=== PATIENT | female | born 1985 | race Caucasian/White ===

== ENCOUNTER 2020-10-17 20:01 | Inpatient (IN) | payer MEDICAID ==
[~2020-10-17] VITALS: Ht 152.4 cm; Wt 89.8 kg
[2020-10-17 20:00] VITALS: BP 138/80
[~2020-10-17 20:01] MED LIST: BETAMETHASONE 6 MG/ML, 5ML IM ONE
[2020-10-17] MEDS ORDERED: MAGNESIUM SULF. PMX 20GM/500ML 500 ML IV ONE (20:04)
[2020-10-17] MEDS: LACTATED RINGERS 1,000 ML IV PRN (20:15)
[2020-10-17] MEDS ORDERED: MAGNESIUM SULFATE PMX 2GM/50ML 50 ML IVPB ONE (20:30)
[2020-10-17] MEDS ORDERED: MAGNESIUM SULF. PMX 20GM/500ML 500 ML IV SCH (20:30)
[2020-10-17 20:42] LABS: MEAN CORPUSCULAR HEMOGLOBIN 30.2 pg (27.0-34.8); MEAN CORPUSCULAR HGB CONC 33.3 g/dL (32.4-35.8); MEAN PLATELET VOLUME 8.5 fL (7.4-10.4); PLATELET COUNT 300 x10^3/uL (130-400); RED BLOOD COUNT 4.18 x10^6/uL (3.82-5.3); RED CELL DISTRIBUTION WIDTH 12.5 % (9.6-15.2)
[2020-10-17 20:51] LABS: AMPHETAMINE SCREEN, URINE Negative (Negative); BARBITURATE SCREEN, URINE Negative (Negative); BENZODIAZEPINE SCREEN, URINE Negative (Negative); CANNABINOID SCREEN, URINE Negative (Negative); COCAINE SCREEN, URINE Negative (Negative); METHADONE SCREEN, URINE Negative (Negative); OPIATE SCREEN, URINE Negative (Negative)
[2020-10-17 20:54] LABS: ALANINE AMINOTRANSFERASE 11 U/L (12-78); ALBUMIN 2.5 g/dL (3.4-5.0); ANION GAP 13 mmol/L (5-15); CALCIUM 8.4 mg/dL (8.5-10.1); CHLORIDE 104 mmol/L (98-107); CREATININE 0.52 mg/dL (0.55-1.02)
[2020-10-17 20:54] LABS: MICROSCOPIC INDICATED
[2020-10-17 20:56] LABS: ALKALINE PHOSPHATASE 202 U/L (45-117); BILIRUBIN,TOTAL 0.5 mg/dL (0.2-1.0); MD YES; TOTAL PROTEIN 6.8 g/dL (6.4-8.2)
[2020-10-17 21:23] LABS: BAND#(MANUAL) 0.56 x10^3/uL; BANDS%(MANUAL) 3 % (0-7); LYMPH#(MANUAL) 2.05 x10^3/uL (1-3.4); LYMPHS% (MANUAL) 11 % (22-44); METAMYELOCYTES# (MANUAL) 0.19 x10^3/uL (0-0); METAMYELOCYTES% (MANUAL) 1 % (0-1); MONOS#(MANUAL) 1.12 x10^3/uL (0.3-2.7); MONOS% (MANUAL) 6 % (2-9); MYELOCYTES# (MANUAL) 0.19 x10^3/uL (0-0); MYELOCYTES% (MANUAL) 1 % (0-0); SEG#(MANUAL) 14.51 x10^3/uL (1.8-6.8); SEGS% (MANUAL) 78 % (42-75)
[2020-10-17 21:24] LABS: <PLATELET ESTIMATE> ADEQUATE; <PLT MORPHOLOGY> NORMAL PLT MORPH; <RBC MORPHOLOGY> NORMAL; TOXIC GRAN 1+
[2020-10-17] MEDS ORDERED: D5%-0.9% NACL 1,000 ML IV SCH (21:30)
[2020-10-17] MEDS: MAGNESIUM SULF. PMX 20GM/500ML 500 ML IV SCH (21:35)
[2020-10-17] MEDS: PENICILLIN GK 2,500,000 UNITS in DEXTROSE 5% 100 ML IV SCH (22:30)
[2020-10-17] MEDS ORDERED: ACETAMINOPHEN 325 MG TABLET ONE (23:56)
[2020-10-18] MEDS: MAGNESIUM SULF. PMX 20GM/500ML 500 ML IV SCH ×3 (02:59→16:34)
[2020-10-18] MEDS: PENICILLIN GK 2,500,000 UNITS in DEXTROSE 5% 100 ML IV SCH ×5 (04:10→19:58)
[2020-10-18] MEDS: ACETAMINOPHEN 325 MG TABLET PO PRN ×2 (07:34)
[2020-10-18 07:39] VITALS: BP 114/66
[2020-10-18] MEDS ORDERED: BETAMETHASONE 6 MG/ML, 5ML IM ONE (18:08)
[2020-10-18] MEDS ORDERED: MAGNESIUM SULF. PMX 20GM/500ML 500 ML IV SCH (21:00)
[2020-10-18] MEDS ORDERED: MAGNESIUM SULF. PMX 20GM/500ML 500 ML IV PRN (21:30)
[2020-10-18] MEDS: LACTATED RINGERS 1,000 ML IV PRN (22:30)
[2020-10-19] MEDS: PENICILLIN GK 2,500,000 UNITS in DEXTROSE 5% 100 ML IV SCH (00:07)
[2020-10-19] MEDS ORDERED: DOCUSATE 100 MG CAPSULE ONE (08:43)
[2020-10-19] MEDS ORDERED: PRENATAL VIT/IRON/FA 1 EACH TABLET ONE (08:44)
[2020-10-19] MEDS: PRENATAL VIT/IRON/FA 1 EACH TABLET PO SCH (09:10)
[2020-10-19] MEDS: DOCUSATE 100 MG CAPSULE PO PRN (09:10)
[2020-10-19] MEDS ORDERED: MAGNESIUM SULF. PMX 20GM/500ML 500 ML IV PRN (10:00)
[2020-10-19] MEDS: LACTATED RINGERS 1,000 ML IV PRN (12:12)
[2020-10-19] MEDS: ACETAMINOPHEN 325 MG TABLET PO PRN (15:00)
[2020-10-19 20:15] VITALS: BP 115/55
[2020-10-20] MEDS ORDERED: PREN1TAB60 PO (08:45)
[2020-10-20] MEDS: SODIUM CHLORIDE FLUSH 3ML SYRINGE IVF SCH ×2 (08:48→21:00)
[2020-10-20] MEDS: PRENATAL VIT/IRON/FA 1 EACH TABLET PO SCH (08:48)
[2020-10-20] MEDS ORDERED: MAGNESIUM SULF. PMX 20GM/500ML 500 ML IV PRN (10:00)
[2020-10-20 19:45] VITALS: BP 120/71
[2020-10-20] MEDS: FLUTICASONE NASAL SPRAY 16GM NAS SCH (20:38)
[2020-10-21] MEDS: PRENATAL VIT/IRON/FA 1 EACH TABLET PO SCH (08:08)
[2020-10-21] MEDS: SODIUM CHLORIDE FLUSH 3ML SYRINGE IVF SCH ×2 (08:08→20:39)
[2020-10-21] MEDS: DEXTROMETHORPHAN 30 MG/5 ML ORAL SOL PO PRN ×2 (08:48→20:37)
[2020-10-21] MEDS: FLUTICASONE NASAL SPRAY 16GM NAS SCH ×2 (08:49→21:00)
[2020-10-21] MEDS: BENZONATATE 100 MG CAPSULE PO PRN ×2 (08:49→18:51)
[2020-10-21 19:36] LABS: BASOPHILS % (AUTO) 0 % (0-1); EOSINOPHILS % (AUTO) 0 % (1-7); LYMPHOCYTES % (AUTO) 19 % (22-44); MEAN CORPUSCULAR HEMOGLOBIN 30.1 pg (27.0-34.8); MEAN CORPUSCULAR HGB CONC 33.3 g/dL (32.4-35.8); MEAN PLATELET VOLUME 8.7 fL (7.4-10.4); MONOCYTES % (AUTO) 13 % (2-9); NEUTROPHILS % (AUTO) 67 % (42-75); PLATELET COUNT 329 x10^3/uL (130-400); RED BLOOD COUNT 4.24 x10^6/uL (3.82-5.3); RED CELL DISTRIBUTION WIDTH 12.6 % (9.6-15.2)
[2020-10-21 20:22] LABS: MD SCAN
[2020-10-22] MEDS: BENZONATATE 100 MG CAPSULE PO PRN (07:09)
[2020-10-22] MEDS: PRENATAL VIT/IRON/FA 1 EACH TABLET PO SCH (08:44)
[2020-10-22] MEDS: SODIUM CHLORIDE FLUSH 3ML SYRINGE IVF SCH (08:44)
[2020-10-22] MEDS: DEXTROMETHORPHAN 30 MG/5 ML ORAL SOL PO PRN ×2 (08:44→20:59)
[2020-10-22] MEDS: FLUTICASONE NASAL SPRAY 16GM NAS SCH ×2 (09:00→21:00)
[2020-10-22 09:08] VITALS: BP 126/70
[2020-10-23 08:53] VITALS: BP 129/78
[2020-10-23] MEDS: FLUTICASONE NASAL SPRAY 16GM NAS SCH ×2 (09:00→21:00)
[2020-10-23] MEDS: SODIUM CHLORIDE FLUSH 3ML SYRINGE IVF SCH ×3 (09:00→21:11)
[2020-10-23] MEDS: DEXTROMETHORPHAN 30 MG/5 ML ORAL SOL PO PRN ×2 (09:18→21:11)
[2020-10-23] MEDS: PRENATAL VIT/IRON/FA 1 EACH TABLET PO SCH (09:37)
[2020-10-24] MEDS: FLUTICASONE NASAL SPRAY 16GM NAS SCH ×2 (09:00→20:48)
[2020-10-24] MEDS: DEXTROMETHORPHAN 30 MG/5 ML ORAL SOL PO PRN ×2 (10:04→22:13)
[2020-10-24] MEDS: SODIUM CHLORIDE FLUSH 3ML SYRINGE IVF SCH ×2 (10:05→20:46)
[2020-10-24] MEDS: PRENATAL VIT/IRON/FA 1 EACH TABLET PO SCH (10:05)
[2020-10-24] MEDS: DOCUSATE 100 MG CAPSULE PO PRN (10:05)
[2020-10-24] MEDS: BENZONATATE 100 MG CAPSULE PO PRN (17:01)
[2020-10-24 20:30] VITALS: BP 142/78
[2020-10-25] MEDS: DEXTROMETHORPHAN 30 MG/5 ML ORAL SOL PO PRN (08:54)
[2020-10-25] MEDS: PRENATAL VIT/IRON/FA 1 EACH TABLET PO SCH (08:54)
[2020-10-25] MEDS: DOCUSATE 100 MG CAPSULE PO PRN (08:54)
[2020-10-25] MEDS: SODIUM CHLORIDE FLUSH 3ML SYRINGE IVF SCH ×2 (08:55→21:20)
[2020-10-25] MEDS: FLUTICASONE NASAL SPRAY 16GM NAS SCH ×2 (09:00→20:52)
[2020-10-25 19:30] VITALS: BP 125/70
[2020-10-26] MEDS: ACETAMINOPHEN 325 MG TABLET PO PRN (07:44)
[2020-10-26] MEDS: PRENATAL VIT/IRON/FA 1 EACH TABLET PO SCH (07:47)
[2020-10-26 07:57] VITALS: BP 125/76
[2020-10-26] MEDS: SODIUM CHLORIDE FLUSH 3ML SYRINGE IVF SCH ×2 (09:00→20:20)
[2020-10-26] MEDS: FLUTICASONE NASAL SPRAY 16GM NAS SCH ×2 (09:00→20:20)
[2020-10-26 19:30] VITALS: BP 127/77
[2020-10-27 05:43] LABS: BASOPHILS % (AUTO) 0 % (0-1); CHLORIDE 102 mmol/L (98-107); EOSINOPHILS % (AUTO) 0 % (1-7); LYMPHOCYTES % (AUTO) 28 % (22-44); MEAN CORPUSCULAR HEMOGLOBIN 29.7 pg (27.0-34.8); MEAN CORPUSCULAR HGB CONC 32.7 g/dL (32.4-35.8); MEAN PLATELET VOLUME 9.1 fL (7.4-10.4); MONOCYTES % (AUTO) 9 % (2-9); NEUTROPHILS % (AUTO) 63 % (42-75); PLATELET COUNT 296 x10^3/uL (130-400); RED BLOOD COUNT 4.21 x10^6/uL (3.82-5.3); RED CELL DISTRIBUTION WIDTH 12.7 % (9.6-15.2)
[2020-10-27 05:58] LABS: ALANINE AMINOTRANSFERASE 13 U/L (12-78); ALBUMIN 2.4 g/dL (3.4-5.0); ALKALINE PHOSPHATASE 179 U/L (45-117); ANION GAP 8 mmol/L (5-15); BILIRUBIN,TOTAL 0.3 mg/dL (0.2-1.0); CREATININE 0.63 mg/dL (0.55-1.02); TOTAL PROTEIN 6.4 g/dL (6.4-8.2)
[2020-10-27 07:19] LABS: MD NO
[2020-10-27] MEDS: PRENATAL VIT/IRON/FA 1 EACH TABLET PO SCH (08:42)
[2020-10-27 08:53] VITALS: BP 120/67
[2020-10-27] MEDS: FLUTICASONE NASAL SPRAY 16GM NAS SCH ×2 (09:00→21:00)
[2020-10-27 19:30] VITALS: BP 127/74
[2020-10-28] MEDS: PRENATAL VIT/IRON/FA 1 EACH TABLET PO SCH (07:45)
[2020-10-28 07:46] VITALS: BP 127/81
[2020-10-28] MEDS: FLUTICASONE NASAL SPRAY 16GM NAS SCH ×2 (09:00→20:12)
[2020-10-28 12:17] VITALS: BP 130/76
[2020-10-28 17:08] VITALS: BP 128/81
[2020-10-28 19:30] VITALS: BP 135/73
[2020-10-29] MEDS: DOCUSATE 100 MG CAPSULE PO PRN ×2 (08:03→20:52)
[2020-10-29] MEDS: PRENATAL VIT/IRON/FA 1 EACH TABLET PO SCH (08:03)
[2020-10-29] MEDS: FLUTICASONE NASAL SPRAY 16GM NAS SCH ×2 (09:00→21:00)
[2020-10-30] MEDS: PRENATAL VIT/IRON/FA 1 EACH TABLET PO SCH (08:08)
[2020-10-30] MEDS: DOCUSATE 100 MG CAPSULE PO PRN ×2 (08:08→22:58)
[2020-10-30] MEDS: FLUTICASONE NASAL SPRAY 16GM NAS SCH ×2 (09:00→21:00)
[2020-10-31] MEDS: DOCUSATE 100 MG CAPSULE PO PRN (08:03)
[2020-10-31] MEDS: PRENATAL VIT/IRON/FA 1 EACH TABLET PO SCH (08:03)
[2020-10-31 08:07] VITALS: BP 114/73
[2020-10-31] MEDS: FLUTICASONE NASAL SPRAY 16GM NAS SCH ×2 (09:00→21:00)
[2020-10-31 20:10] VITALS: BP 128/86
[2020-11-01 07:30] VITALS: BP 130/87
[2020-11-01] MEDS: FLUTICASONE NASAL SPRAY 16GM NAS SCH ×2 (09:00→20:48)
[2020-11-01] MEDS: PRENATAL VIT/IRON/FA 1 EACH TABLET PO SCH (09:11)
[2020-11-01] MEDS: DOCUSATE 100 MG CAPSULE PO PRN (09:11)
[2020-11-01 19:50] VITALS: BP 122/77
[2020-11-02] MEDS: PRENATAL VIT/IRON/FA 1 EACH TABLET PO SCH (08:42)
[2020-11-02] MEDS: DOCUSATE 100 MG CAPSULE PO PRN (08:42)
[2020-11-02 08:49] VITALS: BP 119/77
[2020-11-02] MEDS: FLUTICASONE NASAL SPRAY 16GM NAS SCH ×2 (09:00→21:00)
[2020-11-02 19:20] VITALS: BP 136/86
[2020-11-03] MEDS: FLUTICASONE NASAL SPRAY 16GM NAS SCH ×2 (09:00→21:00)
[2020-11-03] MEDS: PRENATAL VIT/IRON/FA 1 EACH TABLET PO SCH (09:24)
[2020-11-03 09:45] VITALS: BP 117/79
[2020-11-03 19:30] VITALS: BP 124/82
[2020-11-04 08:28] VITALS: BP 122/78
[2020-11-04] MEDS: FLUTICASONE NASAL SPRAY 16GM NAS SCH ×2 (09:00→21:00)
[2020-11-04] MEDS: PRENATAL VIT/IRON/FA 1 EACH TABLET PO SCH (09:50)
[2020-11-04] MEDS: DOCUSATE 100 MG CAPSULE PO PRN (09:50)
[2020-11-05 08:29] VITALS: BP 145/75
[2020-11-05] MEDS: PRENATAL VIT/IRON/FA 1 EACH TABLET PO SCH ×2 (08:36→08:37)
[2020-11-05] MEDS: FLUTICASONE NASAL SPRAY 16GM NAS SCH ×2 (09:00→21:00)
[2020-11-06 07:20] VITALS: BP 138/81
[2020-11-06] MEDS: PRENATAL VIT/IRON/FA 1 EACH TABLET PO SCH (08:22)
[2020-11-06] MEDS: DOCUSATE 100 MG CAPSULE PO PRN (08:22)
[2020-11-06] MEDS: FLUTICASONE NASAL SPRAY 16GM NAS SCH ×2 (09:00→21:00)
[2020-11-07] MEDS: FLUTICASONE NASAL SPRAY 16GM NAS SCH ×2 (09:00→20:52)
[2020-11-07] MEDS: DOCUSATE 100 MG CAPSULE PO PRN (09:21)
[2020-11-07] MEDS: PRENATAL VIT/IRON/FA 1 EACH TABLET PO SCH (09:21)
[2020-11-07 09:23] VITALS: BP 132/76
[2020-11-07 19:45] VITALS: BP 123/84
[2020-11-08] MEDS: DOCUSATE 100 MG CAPSULE PO PRN (07:47)
[2020-11-08] MEDS: PRENATAL VIT/IRON/FA 1 EACH TABLET PO SCH (07:47)
[2020-11-08 07:49] VITALS: BP 117/86
[2020-11-08] MEDS: FLUTICASONE NASAL SPRAY 16GM NAS SCH ×2 (09:00→21:00)
[2020-11-08 19:15] VITALS: BP 132/83
[2020-11-09] MEDS: DOCUSATE 100 MG CAPSULE PO PRN (08:15)
[2020-11-09] MEDS: PRENATAL VIT/IRON/FA 1 EACH TABLET PO SCH (08:15)
[2020-11-09] MEDS: FLUTICASONE NASAL SPRAY 16GM NAS SCH ×2 (09:00→21:00)
[2020-11-09 19:30] VITALS: BP 122/77
[2020-11-10] MEDS: PRENATAL VIT/IRON/FA 1 EACH TABLET PO SCH (09:00)
[2020-11-10] MEDS: FLUTICASONE NASAL SPRAY 16GM NAS SCH ×2 (09:00→21:00)
[2020-11-10 20:00] VITALS: BP 129/84
[2020-11-11 08:55] VITALS: BP 143/87
[2020-11-11] MEDS: PRENATAL VIT/IRON/FA 1 EACH TABLET PO SCH (09:02)
[2020-11-11] MEDS: DOCUSATE 100 MG CAPSULE PO PRN (09:02)
[2020-11-11 10:08] LABS: BASOPHILS % (AUTO) 0 % (0-1); EOSINOPHILS % (AUTO) 0 % (1-7); LYMPHOCYTES % (AUTO) 26 % (22-44); MD NO; MEAN CORPUSCULAR HEMOGLOBIN 29.7 pg (27.0-34.8); MEAN CORPUSCULAR HGB CONC 33.1 g/dL (32.4-35.8); MEAN PLATELET VOLUME 9.1 fL (7.4-10.4); MONOCYTES % (AUTO) 9 % (2-9); NEUTROPHILS % (AUTO) 64 % (42-75); PLATELET COUNT 275 x10^3/uL (130-400); RED BLOOD COUNT 4.58 x10^6/uL (3.82-5.3)
[2020-11-11 10:11] LABS: ALANINE AMINOTRANSFERASE 14 U/L (12-78); ANION GAP 8 mmol/L (5-15); CALCIUM 8.8 mg/dL (8.5-10.1); CHLORIDE 106 mmol/L (98-107); CREATININE 0.64 mg/dL (0.55-1.02)
[2020-11-11 10:14] LABS: ALKALINE PHOSPHATASE 175 U/L (45-117); BILIRUBIN,TOTAL 0.2 mg/dL (0.2-1.0); TOTAL PROTEIN 6.3 g/dL (6.4-8.2)
[2020-11-12] MEDS: PRENATAL VIT/IRON/FA 1 EACH TABLET PO SCH (08:32)
[2020-11-12] MEDS: DOCUSATE 100 MG CAPSULE PO PRN ×2 (08:32→21:27)
[2020-11-12] MEDS: ACETAMINOPHEN 325 MG TABLET PO PRN (16:59)
[2020-11-12 19:32] VITALS: BP 126/80
[2020-11-13] MEDS: ACETAMINOPHEN 325 MG TABLET PO PRN (03:52)
[2020-11-13 07:35] VITALS: BP 119/78
[2020-11-13] MEDS: PRENATAL VIT/IRON/FA 1 EACH TABLET PO SCH (09:19)
[2020-11-13] MEDS: DOCUSATE 100 MG CAPSULE PO PRN (09:19)
[2020-11-13 11:11] LABS: CREATININE CLEARANCE,URINE 82.1 (70.0-140.0)
[2020-11-13 11:31] VITALS: BP 137/83
[2020-11-13 19:30] VITALS: BP 128/82
[2020-11-14 07:59] VITALS: BP 137/83
[2020-11-14] MEDS: DOCUSATE 100 MG CAPSULE PO PRN (08:24)
[2020-11-14] MEDS: PRENATAL VIT/IRON/FA 1 EACH TABLET PO SCH (08:24)
[2020-11-15 11:09] VITALS: BP 147/76
[2020-11-15] MEDS: PRENATAL VIT/IRON/FA 1 EACH TABLET PO SCH (15:44)
[2020-11-15] MEDS: DOCUSATE 100 MG CAPSULE PO PRN (20:50)
[2020-11-16] MEDS: PRENATAL VIT/IRON/FA 1 EACH TABLET PO SCH (09:31)
[2020-11-16 09:34] VITALS: BP 119/81
[2020-11-16 16:30] VITALS: BP 123/76
[2020-11-16 20:00] VITALS: BP 143/89
[2020-11-17] MEDS: PRENATAL VIT/IRON/FA 1 EACH TABLET PO SCH (08:09)
[2020-11-17 19:52] VITALS: BP 130/88
[2020-11-18 08:36] VITALS: BP 129/78
[2020-11-18] MEDS: PRENATAL VIT/IRON/FA 1 EACH TABLET PO SCH (11:10)
[2020-11-18 20:00] VITALS: BP 120/77
[2020-11-19 06:32] LABS: BASOPHILS % (AUTO) 1 % (0-1); EOSINOPHILS % (AUTO) 1 % (1-7); LYMPHOCYTES % (AUTO) 33 % (22-44); MEAN CORPUSCULAR HEMOGLOBIN 29.6 pg (27.0-34.8); MEAN PLATELET VOLUME 9.2 fL (7.4-10.4); MONOCYTES % (AUTO) 10 % (2-9); NEUTROPHILS % (AUTO) 55 % (42-75); PLATELET COUNT 259 x10^3/uL (130-400); RED CELL DISTRIBUTION WIDTH 13.4 % (9.6-15.2)
[2020-11-19 06:35] LABS: MD NO
[2020-11-19 06:43] LABS: ALANINE AMINOTRANSFERASE 12 U/L (12-78); ALBUMIN 1.9 g/dL (3.4-5.0); ANION GAP 7 mmol/L (5-15); CALCIUM 8.5 mg/dL (8.5-10.1); CHLORIDE 107 mmol/L (98-107); CREATININE 0.57 mg/dL (0.55-1.02)
[2020-11-19 06:45] LABS: ALKALINE PHOSPHATASE 177 U/L (45-117); BILIRUBIN,TOTAL 0.3 mg/dL (0.2-1.0); TOTAL PROTEIN 5.7 g/dL (6.4-8.2)
[2020-11-19 08:43] VITALS: BP 119/75
[2020-11-19] MEDS: PRENATAL VIT/IRON/FA 1 EACH TABLET PO SCH (08:58)
[2020-11-19] MEDS: DOCUSATE 100 MG CAPSULE PO PRN (08:58)
[2020-11-19 19:37] VITALS: BP 131/79
[2020-11-20 08:58] VITALS: BP 132/82
[2020-11-20] MEDS: DOCUSATE 100 MG CAPSULE PO PRN (10:19)
[2020-11-20] MEDS: PRENATAL VIT/IRON/FA 1 EACH TABLET PO SCH (10:20)
[2020-11-20 13:20] VITALS: BP 144/76
[2020-11-20 23:26] VITALS: BP 142/79
[2020-11-21 07:59] VITALS: BP 139/85
[2020-11-21 19:00] VITALS: BP 138/88
[2020-11-21] MEDS: PRENATAL VIT/IRON/FA 1 EACH TABLET PO SCH (19:04)
[2020-11-22] MEDS: PRENATAL VIT/IRON/FA 1 EACH TABLET PO SCH (07:18)
[2020-11-22 07:21] VITALS: BP 127/78
[2020-11-22 19:45] VITALS: BP 126/96
[2020-11-23] MEDS: PRENATAL VIT/IRON/FA 1 EACH TABLET PO SCH (10:42)
[2020-11-23 10:45] VITALS: BP 133/93
[2020-11-23 14:44] VITALS: BP 130/82
[2020-11-24 08:20] VITALS: BP 130/78
[2020-11-24] MEDS: PRENATAL VIT/IRON/FA 1 EACH TABLET PO SCH (08:55)
[2020-11-24] MEDS ORDERED: DIPH,PERTUSS(ACELL),TET VAC/PF NC IM-VACC ONE (10:30)
[2020-11-24] MEDS ORDERED: NEWBORN KIT ONE (15:29)
[2020-11-24 20:08] VITALS: BP 129/76
[2020-11-25] MEDS ORDERED: OXYTOCIN 30U/ 0.9% NaCL 500ML 500 ML IV PRN (03:00)
[2020-11-25] MEDS ORDERED: LIDOCAINE 1%, 20ML ONE (06:21)
[2020-11-25] MEDS ORDERED: MISOPROSTOL 200 MCG TABLET ONE (06:22)
[2020-11-25] MEDS ORDERED: OXYTOCIN 30U/ 0.9% NaCL 500ML 500 ML IV ONE (07:30)
[2020-11-25] MEDS ORDERED: TERBUTALINE 1 MG/ML, 1ML SQ PRN (07:30)
[2020-11-25] MEDS ORDERED: TERBUTALINE 1 MG/ML, 1ML IVPush PRN (07:30)
[2020-11-25 07:41] LABS: BASOPHILS % (AUTO) 0 % (0-1); EOSINOPHILS % (AUTO) 0 % (1-7); LYMPHOCYTES % (AUTO) 20 % (22-44); MEAN CORPUSCULAR HEMOGLOBIN 29.6 pg (27.0-34.8); MEAN PLATELET VOLUME 9.2 fL (7.4-10.4); MONOCYTES % (AUTO) 8 % (2-9); NEUTROPHILS % (AUTO) 72 % (42-75); PLATELET COUNT 267 x10^3/uL (130-400); RED BLOOD COUNT 4.66 x10^6/uL (3.82-5.3); RED CELL DISTRIBUTION WIDTH 13.7 % (9.6-15.2)
[2020-11-25 07:42] LABS: MD NO
[2020-11-25] MEDS ORDERED: D5%-LACTATED RINGERS 1,000 ML IV SCH (08:00)
[2020-11-25] MEDS ORDERED: LACTATED RINGERS 1,000 ML IV SCH ×3 (08:00→11:30)
[2020-11-25] MEDS ORDERED: BUPIVACAINE 0.25% ONE (08:01)
[2020-11-25] MEDS ORDERED: EPHEDRINE 50 MG/ML, 1ML IVPush PRN (08:30)
[2020-11-25] MEDS ORDERED: FENTANYL/BUPIV./NS/PF 250 ML EPIDCONT SCH (08:30)
[2020-11-25] MEDS ORDERED: NALOXONE 0.4 MG/ML, 1ML IVPush PRN (08:30)
[2020-11-25] MEDS ORDERED: FENTANYL PF 500 MCG, BUPIVACAINE/PF 0.5%, 30ML 62.5 ML in SODIUM CHLORIDE 0.9% 177.5 ML EPIDCONT SCH (08:30)
[2020-11-25] MEDS ORDERED: LACTATED RINGERS 1,000 ML IVBOLUS PRN (08:30)
[2020-11-25] MEDS ORDERED: DIPHENHYDRAMINE 50 MG/ML, 1ML IVPush PRN ×2 (08:30→19:30)
[2020-11-25] MEDS ORDERED: ONDANSETRON 2MG/ML, 2ML IVPush PRN (08:30)
[2020-11-25] MEDS ORDERED: PHENYLEPHRINE 10 MG/ML ONE (08:55)
[2020-11-25] MEDS: PRENATAL VIT/IRON/FA 1 EACH TABLET PO SCH (09:00)
[2020-11-25] MEDS ORDERED: LIDOCAINE/MPF 2%-EPI 1:200K, 20 ML ONE (09:39)
[2020-11-25] MEDS ORDERED: morphine SULFATE/PF 0.5 MG/ML, 10ML ONE (09:53)
[2020-11-25] MEDS ORDERED: OXYTOCIN 10 UNITS/ML, 1ML ONE (09:54)
[2020-11-25] MEDS ORDERED: ONDANSETRON 2MG/ML, 2ML ONE (09:54)
[2020-11-25] MEDS ORDERED: KETOROLAC 30 MG/1 ML ONE (09:54)
[2020-11-25] MEDS ORDERED: CEFAZOLIN 1,000 MG ONE (09:54)
[2020-11-25] MEDS ORDERED: SODIUM CHLORIDE 0.9% PF 10ML ONE (09:54)
[2020-11-25] MEDS ORDERED: DEXAMETHASONE 4 MG/ML, 1ML ONE (09:54)
[2020-11-25] MEDS ORDERED: AZITHROMYCIN 500 MG in SODIUM CHLORIDE 0.9% 250 ML IV ONE (10:00)
[2020-11-25] MEDS ORDERED: LACTATED RINGERS 1,000 ML IVBOLUS ONE (10:00)
[2020-11-25] MEDS ORDERED: SODIUM CITRATE/CITRIC ACID 30 ML UDC PO ONE (10:00)
[2020-11-25] MEDS ORDERED: METOCLOPRAMIDE 5 MG/ML, 2ML IV ONE (10:00)
[2020-11-25] MEDS ORDERED: MIDAZOLAM 1 MG/ML, 2ML ONE (10:46)
[2020-11-25] MEDS ORDERED: DOCUSATE 100 MG CAPSULE PO PRN (11:30)
[2020-11-25] MEDS: OXYTOCIN 30U/ 0.9% NaCL 500ML 500 ML IV SCH ×2 (11:30→21:30)
[2020-11-25] MEDS ORDERED: IBUPROFEN 600 MG TABLET PO PRN (11:30)
[2020-11-25] MEDS ORDERED: MISOPROSTOL 200 MCG TABLET PR PRN (11:30)
[2020-11-25] MEDS ORDERED: METHYLERGONOVINE 0.2 MG/ML IM PRN (11:30)
[2020-11-25] MEDS ORDERED: ACETAMINOPHEN 325 MG TABLET PO PRN (11:30)
[2020-11-25] MEDS ORDERED: ONDANSETRON 2MG/ML, 2ML IV PRN (11:30)
[2020-11-25] MEDS ORDERED: CARBOPROST TROMETHAMINE 250 MCG/ML, 1ML IM PRN (11:30)
[2020-11-25] MEDS ORDERED: LOPERAMIDE 2 MG CAPSULE ONE (12:43)
[2020-11-25] MEDS ORDERED: LOPERAMIDE 2 MG CAPSULE PO ONE (13:00)
[2020-11-25] MEDS: LACTATED RINGERS 1,000 ML IV SCH ×2 (13:17→21:30)
[2020-11-25 14:00] VITALS: BP 133/87
[2020-11-25] MEDS: KETOROLAC 30 MG/1 ML IV SCH ×2 (17:08→23:17)
[2020-11-25 18:40] LABS: BASOPHILS % (AUTO) 0 % (0-1); EOSINOPHILS % (AUTO) 0 % (1-7); LYMPHOCYTES % (AUTO) 6 % (22-44); MEAN CORPUSCULAR HEMOGLOBIN 29.5 pg (27.0-34.8); MEAN CORPUSCULAR HGB CONC 32.9 g/dL (32.4-35.8); MEAN PLATELET VOLUME 9.4 fL (7.4-10.4); MONOCYTES % (AUTO) 4 % (2-9); NEUTROPHILS % (AUTO) 90 % (42-75); PLATELET COUNT 270 x10^3/uL (130-400); RED BLOOD COUNT 4.47 x10^6/uL (3.82-5.3); RED CELL DISTRIBUTION WIDTH 13.6 % (9.6-15.2)
[2020-11-25 18:59] LABS: MD SCAN
[2020-11-25] MEDS ORDERED: MORPHINE SULFATE 4 MG/ML, 1ML IVPush PRN (19:30)
[2020-11-25 20:00] VITALS: BP 137/83
[2020-11-25] MEDS ORDERED: OXYcodone/APAP 5/325MG TABLET PO PRN (20:00)
[2020-11-25 23:45] VITALS: BP 109/76
[2020-11-26 04:30] VITALS: BP 100/63
[2020-11-26] MEDS: KETOROLAC 30 MG/1 ML IV SCH ×4 (05:13→23:18)
[2020-11-26] MEDS: PRENATAL VIT/IRON/FA 1 EACH TABLET PO SCH ×2 (07:32→07:34)
[2020-11-26] MEDS: DOCUSATE 100 MG CAPSULE PO PRN ×2 (07:32→21:24)
[2020-11-26] MEDS: OXYTOCIN 30U/ 0.9% NaCL 500ML 500 ML IV SCH ×2 (07:34→17:31)
[2020-11-26] MEDS: LACTATED RINGERS 1,000 ML IV SCH ×2 (07:34→17:31)
[2020-11-26 07:52] VITALS: BP 118/83
[2020-11-26] MEDS: OXYcodone/APAP 5/325MG TABLET PO PRN (13:34)
[2020-11-26 13:42] VITALS: BP 103/71
[2020-11-26] MEDS: OXYcodone IR 5MG TABLET PO PRN ×2 (17:37→21:26)
[2020-11-26 20:01] VITALS: BP 106/70
[2020-11-26] MEDS: SIMETHICONE 80 MG CHEW TAB PO PRN (21:23)
[2020-11-27] MEDS: OXYcodone/APAP 5/325MG TABLET PO PRN ×3 (01:51→19:27)
[2020-11-27] MEDS: OXYTOCIN 30U/ 0.9% NaCL 500ML 500 ML IV SCH ×3 (03:30→23:30)
[2020-11-27] MEDS: LACTATED RINGERS 1,000 ML IV SCH ×3 (03:30→23:30)
[2020-11-27] MEDS: KETOROLAC 30 MG/1 ML IV SCH ×2 (05:18→11:00)
[2020-11-27] MEDS: SIMETHICONE 80 MG CHEW TAB PO PRN ×3 (05:18→19:27)
[2020-11-27] MEDS: DOCUSATE 100 MG CAPSULE PO PRN ×2 (07:38→19:27)
[2020-11-27] MEDS: PRENATAL VIT/IRON/FA 1 EACH TABLET PO SCH ×2 (07:38)
[2020-11-27 08:00] VITALS: BP 120/82
[2020-11-27] MEDS: OXYcodone IR 5MG TABLET PO PRN ×2 (11:25→15:30)
[2020-11-27] MEDS: IBUPROFEN 600 MG TABLET PO PRN ×2 (11:25→19:27)
[2020-11-27 19:30] VITALS: BP 134/90
[2020-11-28 01:30] VITALS: BP 135/92
[2020-11-28] MEDS: SIMETHICONE 80 MG CHEW TAB PO PRN (01:46)
[2020-11-28] MEDS: ACETAMINOPHEN 325 MG TABLET PO PRN (01:47)
[2020-11-28] MEDS: OXYcodone/APAP 5/325MG TABLET PO PRN ×2 (05:46→11:23)
[2020-11-28] MEDS ORDERED: IBUP-1222 PO (07:15)
[2020-11-28] MEDS ORDERED: DOCU-131 PO (07:15)
[2020-11-28] MEDS ORDERED: OXYC1TAB14 PO (07:15)
[2020-11-28] MEDS: PRENATAL VIT/IRON/FA 1 EACH TABLET PO SCH (07:50)
[2020-11-28] MEDS: DOCUSATE 100 MG CAPSULE PO PRN (07:50)
[2020-11-28] MEDS: IBUPROFEN 600 MG TABLET PO PRN (07:50)
[2020-11-28 08:00] VITALS: BP 152/94
== END 2020-11-28 14:22 | disposition home or self-care (01) | DRG 540 ==
LOC: LDIP 20:01 → 2NW 11-25 13:37
PROVIDERS: ADMIT Obstetrics & Gynecology Maternal & Fetal Medicine; ATTEND Obstetrics & Gynecology Maternal & Fetal Medicine
PROC: 10D00Z1 Extraction of Products of Conception, Low, Open Approach (ICD-10-PCS; principal; 2020-11-25)
DX: O30.043 Twin pregnancy, dichorionic/diamniotic, third trimester (principal); O60.14X0 Preterm labor third trimester with preterm delivery third trimester, not applicable or unspecified; Z37.2 Twins, both liveborn; O40.3XX0 Polyhydramnios, third trimester, not applicable or unspecified; O32.1XX1 Maternal care for breech presentation, fetus 1; O32.1XX2 Maternal care for breech presentation, fetus 2; M54.30 Sciatica, unspecified side; O69.81X0 Labor and delivery complicated by cord around neck, without compression, not applicable or unspecified; Z3A.37 37 weeks gestation of pregnancy; Z86.32 Personal history of gestational diabetes
CPT/HCPCS: J3490; S0020; 36415; 80053; 80307; 81001; 82565; 82570; 83735; 84156; 84550; 85025; 86592; 86850; 86900; 87081; 87086; 87635; 88307; 90715; G0378; J0456; J0690; J0702; J1100; J1885; J2250; J2274; J2405; J2540; J3010; J7042; J2370; J2590; J3475; J7050; J7120